=== PATIENT | female | born 1950 | race Caucasian/White ===

== ENCOUNTER → 2017-12-30 | Outpatient (RCR) | payer OTHER | END | disposition home or self-care (01) | LOC: PTY 14:45 | DX: M54.31 Sciatica, right side (principal) ==

== ENCOUNTER 2018-01-06 10:15 | Outpatient (RCR) | payer OTHER | END 2018-01-30 | disposition home or self-care (01) | LOC: PTY 10:15 | DX: M54.31 Sciatica, right side (principal) ==

== ENCOUNTER 2018-02-03 13:00 | Outpatient (RCR) | payer OTHER | END 2018-03-01 | disposition home or self-care (01) | LOC: PTY 13:00 | DX: M54.31 Sciatica, right side (principal) ==